=== PATIENT | male | born 1985 | race Caucasian/White ===

== ENCOUNTER 2022-08-23 07:19 | Emergency (ER) | payer BC ==
[~2022-08-23] VITALS: Ht 175.3 cm; Wt 65.9 kg
[~2022-08-23 07:19] MED LIST: NO HOME MEDICATIONS
[2022-08-23 07:32] VITALS: TEMP 97.4
[2022-08-23 09:02] VITALS: BP 127/94; PULSE 73
== END 2022-08-23 09:02 | disposition home or self-care (01) ==
LOC: COL.ER 07:19
DX: S43.102A Unspecified dislocation of left acromioclavicular joint, initial encounter (principal); V19.9XXA Pedal cyclist (driver) (passenger) injured in unspecified traffic accident, initial encounter; Y92.410 Unspecified street and highway as the place of occurrence of the external cause; Y93.55 Activity, bike riding
CPT/HCPCS: J1885